=== PATIENT | female | born 1995 ===

== ENCOUNTER 2018-12-01 20:47 | Emergency (ER) | payer MEDICAID ==
[2018-12-01 21:02] VITALS: RESP 18; TEMP 98.9; O2SAT 99
--- NOTE | 2018-12-01 21:52 | ED PDOC ---
HPI: Female Pain Additional Complaint(s): 22 y/o F with no pmhx is c/o constant, nonradiating lower abdominal pain and blood in urine with some clots x 2-3 hours. She report pain started first 01/15, followed by blood in the urine with some clots. She denies having similar symptoms in the past. Denies fever, chills, nausea, vomitting, diarrhea, flank pain, hx of renal stones. LMP: 10/20/2018, irregular-every 2 or 3 months) PMH: denies Meds: denies Allergies: denies Surghx: denies Famhx: denies Sochx: denies ROS: all points reviewed and are negative unless otherwise mentioned in HPI <Yanique Osuna - Last Filed: 12/01/18 23:07> <Tonja Francois - Last Filed: 12/01/18 23:58> Time Seen by Provider: 12/01/18 21:24 Chief Complaint (Nursing): Female Genitourinary Supervising Attending Note - Supervising Attending Note The Documented history was done by the: Physician Wood Finisher The documented physical exam was done by the: Physician Wood Finisher, Attending Physician - Attestation: I have personally seen and examined this patient.: Yes I have fully participated in the care of the patient.: Yes I have reviewed all pertinent clinical information, including history, physical exam and plan: Yes - Notes: Notes:: Hematuria and labs c/w hemorrhagic cystitis, no systemic symptoms (no sepsis) DW pt findings. Stable for discharge. <Tonja Francois - Last Filed: 12/01/18 23:58> Past Medical History Vital Signs: Last Vital Signs Temp 98.9 F 12/01/18 20:58 Pulse 96 H 12/01/18 20:58 Resp 18 12/01/18 20:58 BP 144/95 H 12/01/18 20:58 Pulse Ox 99 12/01/18 20:58 - Family History Family History: States: No Known Family Hx <Yanique Osuna - Last Filed: 12/01/18 23:07> Vital Signs: Last Vital Signs Temp 98.9 F 12/01/18 20:58 Pulse 87 12/01/18 23:19 Resp 18 12/01/18 20:58 BP 125/61 12/01/18 23:19 Pulse Ox 99 12/01/18 23:19 <Tonja Francois - Last Filed: 12/01/18 23:58> - Home Medications Home Medications: Ambulatory Orders Medication Instructions Recorded Ibuprofen [Motrin Tab] 600 mg PO Q8 PRN #30 tab 12/01/18 Nitrofurantoin Macrocrystals 1 cap PO BID #14 cap 12/01/18 [Macrobid] - Allergies Allergies/Adverse Reactions: Allergies Allergy/AdvReac Type Severity Reaction Status Date / Time No Known Allergies Allergy Verified 12/01/18 20:58 Physical Exam - Physical Exam Appears: Positive for: Non-toxic Head Exam: Positive for: ATRAUMATIC, NORMAL INSPECTION Skin: Positive for: Dry. Negative for: Rash Eye Exam: Positive for: PERRL, Nystagmus ENT: Positive for: Normal ENT Inspection. Negative for: Nasal Congestion, Pharyngeal Erythema, Tonsillar Exudate Cardiovascular/Chest: Positive for: Regular Rate, Rhythm. Negative for: Murmur Respiratory: Positive for: Normal Breath Sounds. Negative for: Wheezing, Respiratory Distress Gastrointestinal/Abdominal: Positive for: Bowel Sounds, Soft, Tenderness. Negative for: Distended, Guarding, Rebound Back: Negative for: L CVA Tenderness, R CVA Tenderness Extremity: Negative for: Tenderness Neurological/Psych: Positive for: Awake, Alert <Yanique Osuna - Last Filed: 12/01/18 23:07> - ECG O2 Sat by Pulse Oximetry: 99 <Yanique Osuna - Last Filed: 12/01/18 23:07> - Laboratory Results Lab Results: Urine Color Red (YELLOW) 12/01/18 22:24 Urine Clarity Bloody (Clear) 12/01/18 22:24 Urine pH 7.5 (5.0-8.0) 12/01/18 22:24 Ur Specific [place] 1.005 (1.003-1.030) 12/01/18 22:24 Urine Protein 300 mg/dL (NEGATIVE) 12/01/18 22:24 Urine Glucose (UA) 100 mg/dL (NEGATIVE) 12/01/18 22:24 Urine Ketones 15 mg/dL (NEGATIVE) 12/01/18 22:24 Urine Blood Large (NEGATIVE) 12/01/18 22:24 Urine Nitrate Positive (NEGATIVE) H 12/01/18 22:24 Urine Bilirubin Large (NEGATIVE) 12/01/18 22:24 Urine Urobilinogen 2.0 mg/dL (0.2-1.0) H 12/01/18 22:24 Ur Leukocyte Esterase Large Jordy/uL (Negative) 12/01/18 22:24 Urine RBC (Auto) /hpf (0-3) 12/01/18 22:24 Urine Microscopic WBC /hpf (0-5) 12/01/18 22:24 Ur Squamous Epith Cells < 1 /hpf (0-5) 12/01/18 22:24 Urine Bacteria Mod (<OCC) H 12/01/18 22:24 <Tonja Francois - Last Filed: 12/01/18 23:58> Disposition Comment: Please follow up with your primary medical doctor in 2-3 days. - Disposition Disposition: Routine/Home Disposition Time: 23:05 <Yanique Osuna - Last Filed: 12/01/18 23:07> <Tonja Francois - Last Filed: 12/01/18 23:58> - Clinical Impression Clinical Impression: Hemorrhagic cystitis - Disposition Referrals: Noemi Silverman [Family Provider] - 12/04/18 Condition: STABLE Prescriptions: Ibuprofen [Motrin Tab] 600 mg PO Q8 PRN #30 tab PRN Reason: Pain, Moderate (4-7) Nitrofurantoin Macrocrystals [Macrobid] 1 cap PO BID #14 cap Instructions: Urinary Tract Infection, Adult (DC), Acute Cystitis (DC)
[2018-12-01 22:51] LABS: URINE CLARITY BLOODY (Clear); URINE GLUCOSE (UA) 100 mg/dL (NEGATIVE)
[2018-12-01 22:52] LABS: PH,URINE 7.5 (5.0-8.0); URINE BILIRUBIN LARGE (NEGATIVE); URINE BLOOD LARGE (NEGATIVE); URINE PROTEIN 300 mg/dL (NEGATIVE)
[2018-12-01 22:53] LABS: URINE LEUKOCYTE ESTERASE LARGE Leu/uL (Negative)
[2018-12-01 22:55] LABS: SQUAMOUS EPITHIAL < 1 /hpf (0-5); URINE COLOR RED (YELLOW)
[2018-12-01 22:56] LABS: URINE BACTERIA MOD (<OCC)
[2018-12-01 23:20] VITALS: BP 125/61; PULSE 87
== END 2018-12-01 23:06 | disposition home or self-care (01) ==
LOC: H.ER 20:47
DX: N30.91 Cystitis, unspecified with hematuria (principal)